=== PATIENT | female | born 1950 | race Caucasian/White ===

== ENCOUNTER → 2017-11-16 | Outpatient (CLI) | payer OTHER, BC ==
[~2017-11-16] MED LIST: METO-478 PO; OSEL75CA12 PO; PANT40TA PO; ROSU5TAB PO; VNTHFA/IN INH
== END | disposition home or self-care (01) ==
LOC: C.CPL 12:25
PROVIDERS: ATTEND Orthopaedic Surgery
DX: S83.242A Other tear of medial meniscus, current injury, left knee, initial encounter (principal); X58.XXXA Exposure to other specified factors, initial encounter

== ENCOUNTER 2017-11-25 10:40 | Emergency (ER) | payer OTHER, BC ==
[~2017-11-25] VITALS: Ht 160 cm; Wt 62.6 kg
[2017-11-25 10:42] VITALS: TEMP 37.8; Ht 160 cm; Wt 62.6 kg
[2017-11-25] MEDS ORDERED: ALBUT/IPRATROP 3MG/0.5MG NEB 3 ML VIAL INH STA (11:17)
[2017-11-25] MEDS ORDERED: ACETAMINOPHEN IV 100 ML IV ONE (11:30)
[2017-11-25] MEDS ORDERED: ROSU5TAB PO (11:32)
[2017-11-25] MEDS ORDERED: PANT40TA PO (11:32)
[2017-11-25] MEDS ORDERED: METO-478 PO (11:32)
[2017-11-25 11:48] LABS: BASO % 0.4 %; BASO ABS # 0.02 K/uL (0-0.2); HEMATOCRIT 36.6 % (37-47); HEMOGLOBIN 12.5 g/dL (12.0-16.0); IG# 0.01 K/uL (0.00-0.02); LYMPH % 9.6 %; LYMPH ABS # 0.47 K/uL (1.2-3.4); MEAN CELL VOLUME 92.9 fL (80-100); MEAN CORPUSCULAR HEMOGLOBIN 31.7 pg (25-34); MEAN CORPUSCULAR HGB CONC 34.2 g/dl (32-36); MEAN PLATELET VOLUME 12.2 fL (7.4-10.4); MONO % 8.8 %; MONO ABS # 0.43 K/uL (0.11-0.59); NEUT ABS # 3.96 K/uL (1.4-6.5); PLATELET COUNT 132 K/uL (130-400); RED CELL DISTRIBUTION WIDTH CV 14.3 % (11.5-14.5); RED CELL DISTRIBUTION WIDTH SD 49.2 fL (36.4-46.3); WHITE BLOOD COUNT 4.89 K/uL (4.8-10.8)
[2017-11-25 12:02] LABS: CALCIUM 8.4 mg/dl (8.5-10.1); CREATININE 0.83 mg/dl (0.60-1.20); POTASSIUM 3.5 mmol/L (3.5-5.1)
[2017-11-25 12:21] LABS: INFLUENZA B ANTIGEN Neg for Influ B (NEG)
--- NOTE | 2017-11-25 13:04 | DIAGNOSTIC IMAGING REPORT ---
CHEST 2 VIEWS ROUTINE HISTORY: 67 years-old Female EVALUATE RESPIRATORY DISTRESS.DYSPNEA acute respiratory distress with cough COMPARISON: None available TECHNIQUE: PA and lateral views of the chest FINDINGS: Cardiomediastinal and hilar silhouettes are within normal limits. No pneumothorax. There is mild blunting of the bilateral posterior costophrenic angles. No overt pulmonary edema. Ill-defined opacity of the lateral right lung base seen only on the frontal projection measures 2.8 x 1.9 cm without correlate seen on the lateral view. Bones of the chest appear grossly intact. There are degenerative changes of the shoulders and spine. IMPRESSION: 1. Ill-defined hazy opacity of the lateral right lung base may be attributed to composite density artifact or underlying airspace disease. Attention at follow-up recommended. 2. Mild blunting of the bilateral posterior costophrenic angles may be secondary to scarring/atelectasis or trace effusions. The above report was generated using voice recognition software. It may contain grammatical, syntax or spelling errors. Electronically signed by: Patricio Lamas M.D. 11/25/2017 1:03 PM Dictated Date/Time: 11/25/2017 1:00 PM
--- NOTE | 2017-11-25 13:13 | EMERGENCY ROOM VISIT NOTE ---
ED Visit Note First contact with patient: 11:00 The patient was seen and examined with Tiff. I agree with the history, physical and findings. Please see the note for disposition and details.
[2017-11-25] MEDS ORDERED: VNTHFA/IN INH (13:18)
[2017-11-25] MEDS ORDERED: OSEL75CA12 PO (13:18)
[2017-11-25 13:54] VITALS: BP 111/58; PULSE 98; O2SAT 97
--- NOTE | 2017-11-25 17:00 | EMERGENCY ROOM VISIT NOTE ---
ED Visit Note First contact with patient: 11:00 Chief Complaint: Flulike symptoms. History of Present Illness: Ms. Julien is a 67-year-old white female who ambulates into the ED complaining of sinus congestion, nasal drainage, cough and fevers. Patient reports her symptoms started 2 days ago after she had left knee surgery. Since that time her symptoms have been constant and slightly increasing in intensity. She reports her symptoms started with a cough and then she slowly developed sinus congestion/pressure, nasal drainage and yesterday she started developing fevers. She does report that she had her influenza vaccination this year. Currently she complains of a bifrontal headache discomfort with her congestion. She rates this discomfort 6/10. The pain is nonradiating. The pain is slightly worse with cough. She has not identified any alleviating factors related to the pain. She reports taking acetaminophen and Mucinex at 830 this morning without relief of her discomforts or symptoms. She denies skin eruptions, skin color changes, sweats, dizziness, lightheadedness, hearing changes, visual changes, difficulty speaking, difficulty swallowing, difficulty walking/coordinating body movements, sore throat, painful swallowing, drooling, voice changes, neck pain/stiffness, wheezing, shortness of breath, hemoptysis, chest pain, palpitations, previous clots, claudication, cramping, extended travel, abdominal pain, nausea, vomiting. Review of Systems: As noted above in history of present illness. All body systems were reviewed and found to be negative as noted above. Past Medical History: As previously noted, tachycardia, unspecified heart murmur , status post hysterectomy, bilateral knee surgery. Current Medications: Metoprolol XL, Crestor, Protonix. Allergies to Medications: Sulfa. Social History: Patient is not employed; she lives with her and feels safe in her home environment; she denies to tobacco and alcohol use Physical Examination: Vital Signs: Date Time Temp Pulse Resp B/P (MAP) Pulse Ox O2 Delivery O2 Flow Rate FiO2 11/25/17 13:54 98 20 111/58 97 Room Air 11/25/17 12:30 99 20 110/60 98 Room Air 11/25/17 12:18 108 20 127/62 Room Air 11/25/17 11:50 96 11/25/17 10:42 37.8 105 18 117/67 95 Room Air GENERAL: 67-year-old female in mild distress due to pain, nontoxic-appearing, afebrile and hemodynamically stable. NEUROLOGICAL: Awake, alert and oriented to person, place and time. Answering questions appropriately and following commands. Normal gait. Good hand eye coordination. No focal motor sensory deficits. SKIN: Warm, dry and pink. No soft tissue eruptions or trauma noted. HEENT: Atraumatic and normocephalic. No erythema or tenderness over the frontal or maxillary sinuses. External ears are nontender. Auditory canals are pink and patent. Tympanic membranes are not erythematous or edematous. PERRLA. Sclera white and conjunctiva pink without drainage. No drainage from naris with audible congestion. Oral cavity moist and pink. Uvula is midline and no abscesses are seen. Pharynx is nonerythematous or edematous. Speech normal and clear. No lymphadenopathy. Trachea midline. No jugular venous distention. BACK: No tenderness over the bony cervical, thoracic and lumbar spine. No nuchal rigidity or meningismus. Full range of motion of the cervical spine. No CVA tenderness. THORAX: Lungs sounds are clear to auscultation but decreased in the bases with prominence on the right. Equal bilaterally with symmetrical chest wall. No wheezing, rales or rhonchi. No crepitus, tenderness, subcutaneous air or deformities noted. HEART: Regular rate and rhythm. ABDOMEN: Flat, soft and nontender. Positive bowel sounds in all quadrants. No guarding, rigidity or organomegaly. EXTREMITIES: Moves all extremities well on command and with purpose. All distal neurovascular statuses are intact and equal bilaterally. No calf tenderness or cords. ED Course: Patient is assessed as noted above. Patient's medication list was reviewed. Laboratory Testing: Test 11/25/17 11:30 11/25/17 11:40 11/25/17 12:20 Range/Units White Blood Count 4.89 4.8-10.8 K/uL Red Blood Count 3.94 4.2-5.4 M/uL Hemoglobin 12.5 12.0-16.0 g/dL Hematocrit 36.6 37-47 % Mean Corpuscular Volume 92.9 80-100 fL Mean Corpuscular Hemoglobin 31.7 25-34 pg Mean Corpuscular Hemoglobin Concent 34.2 32-36 g/dl Platelet Count 132 130-400 K/uL Mean Platelet Volume 12.2 7.4-10.4 fL Neutrophils (%) (Auto) 81.0 % Lymphocytes (%) (Auto) 9.6 % Monocytes (%) (Auto) 8.8 % Eosinophils (%) (Auto) 0.0 % Basophils (%) (Auto) 0.4 % Neutrophils # (Auto) 3.96 1.4-6.5 K/uL Lymphocytes # (Auto) 0.47 1.2-3.4 K/uL Monocytes # (Auto) 0.43 0.11-0.59 K/uL Eosinophils # (Auto) 0.00 0-0.5 K/uL Basophils # (Auto) 0.02 0-0.2 K/uL RDW Standard Deviation 49.2 36.4-46.3 fL RDW Coefficient of Variation 14.3 11.5-14.5 % Immature Granulocyte % (Auto) 0.2 % Immature Granulocyte # (Auto) 0.01 0.00-0.02 K/uL Sodium Level 137 136-145 mmol/L Potassium Level 3.5 3.5-5.1 mmol/L Chloride Level 102 98-107 mmol/L Carbon Dioxide Level 29 21-32 mmol/L Anion Gap 6.0 3-11 mmol/L Blood Urea Nitrogen 15 7-18 mg/dl Creatinine 0.83 0.60-1.20 mg/dl Est Creatinine Clear Calc Drug Dose 55.9 ml/min Estimated GFR () 85.8 Estimated GFR (Non- 74.0 BUN/Creatinine Ratio 18.4 10-20 Random Glucose 108 70-99 mg/dl Calcium Level 8.4 8.5-10.1 mg/dl Influenza Type A Antigen POS for Influ A NEG Influenza Type B Antigen Neg for Influ B NEG Urine Color YELLOW Urine Appearance CLEAR CLEAR Urine pH 6.0 4.5-7.5 Urine Specific [place] 1.006 1.000-1.030 Urine Protein NEG NEG Urine Glucose (UA) NEG NEG Urine Ketones NEG NEG Urine Occult Blood NEG NEG Urine Nitrite NEG NEG Urine Bilirubin NEG NEG Urine Urobilinogen NEG NEG Urine Leukocyte Esterase NEG NEG Chest X-Rays: Were read by myself and the radiologist and shows an ill-defined hazy opacity of the lateral right lung base of questionable etiology, mild blunting of the bilateral posterior costophrenic angles of questionable etiology. Patient was given an albuterol/Atrovent nebulizer breathing treatment and 1 g of acetaminophen IV for pain. Patient was reassessed multiple times during her stay in the emergency department. Patient's case was reviewed with Dr. Drake; he independently assessed the patient we agreed on diagnostic approach, treatment, disposition and plan. Patient was educated about today's findings and instructed on her treatment plan ; she verbalized understanding and agreement with this plan. Clinical Impression: Influenza A. Cough and sinus congestion. Differential Diagnosis: Initially my differential diagnosis I considered pneumonia, bronchitis, influenza, simple common cold, pulmonary embolism, congestive heart failure and other causes. Disposition: Patient discharged home in stable condition accompanied by her ; prior to departure she was reassessed and subjectively reported she was feeling much better. I did reevaluate her lungs and are clear to auscultation with improved air movement in the bases. Plan: Patient was prescribed Tamiflu 75 mg 2 times a day for 5 days. Patient was prescribed an albuterol inhaler with spacer and encouraged to use 2 puffs every 6 hours for 5 days and is needed for severe coughing episode. Patient was supplied with an incentive spirometer and she was encouraged to use it 5 or 6 times a day while awake. Patient was encouraged to alternate ibuprofen and acetaminophen as needed for pain or fevers every 3 hours. Patient was encouraged to consider using [id number] decongestant and or cough suppressant. Patient is encouraged to follow-up with her primary care provider as soon as practical; she reports she is new to this area and her first visit with her new primary care provider is on December 05. Patient was encouraged to return the ED for worsening/uncontrolled symptoms, uncontrolled fevers, coughing up blood, wheezing, shortness of breath or any new /concerning symptoms.
== END 2017-11-25 14:10 | disposition home or self-care (01) ==
LOC: C.EDB 10:42
DX: J10.1 Influenza due to other identified influenza virus with other respiratory manifestations (principal); Z98.890 Other specified postprocedural states; Z90.710 Acquired absence of both cervix and uterus; Z79.899 Other long term (current) drug therapy

== ENCOUNTER 2021-06-26 05:14 | Observation (INO) ==
--- NOTE | 2021-05-27 12:05 | PAT Medication Instructions ---
Medication Instructions Date of Service May 27, 2021 Home Medications Lactobacillus 40-Bifidobact 3-S.thermophilus 100 billion cell capsule (Probiotic) 1 cap PO QAM azelastine 205.5 mcg (0.15 %) nasal spray 1 spray INTRANASAL BID PRN cholecalciferol (vitamin D3) 10 mcg (400 unit) tablet (Vitamin D3) 10 mcg PO QAM conjugated estrogens 0.625 mg/gram vaginal cream (Premarin) 0.625 mg VAGINAL WK diclofenac sodium 1 % topical gel 2 g TOPICAL QID PRN famotidine 20 mg tablet 20 mg PO QPM fluticasone propionate 50 mcg/actuation nasal spray,suspension 1 spray INTRANASAL BID ipratropium bromide 21 mcg (0.03 %) nasal spray 2 spray INTRANASAL BID PRN lysine 500 mg capsule 500 mg PO QAM methylcellulose (laxative) 500 mg tablet (Citrucel) 500 mg PO QAM metoprolol succinate 25 mg tablet,extended release 24 hr (Toprol XL) 12.5 mg PO QPM rosuvastatin 5 mg tablet (Crestor) 5 mg PO QAM valacyclovir 1 gram tablet (Valtrex) 1,000 mg PO BID PRN STOP taking 24 hours before surgery conjugated estrogens 0.625 mg/gram vaginal cream (Premarin) 0.625 mg VAGINAL WK diclofenac sodium 1 % topical gel 2 g TOPICAL QID PRN DO NOT take the morning of surgery Lactobacillus 40-Bifidobact 3-S.thermophilus 100 billion cell capsule (Probiotic) 1 cap PO QAM cholecalciferol (vitamin D3) 10 mcg (400 unit) tablet (Vitamin D3) 10 mcg PO QAM conjugated estrogens 0.625 mg/gram vaginal cream (Premarin) 0.625 mg VAGINAL WK lysine 500 mg capsule 500 mg PO QAM methylcellulose (laxative) 500 mg tablet (Citrucel) 500 mg PO QAM Take morning of surgery With a small sip of water, OTHERWISE NOTHING TO EAT OR DRINK AFTER MIDNIGHT: azelastine 205.5 mcg (0.15 %) nasal spray 1 spray INTRANASAL BID PRN (if needed) fluticasone propionate 50 mcg/actuation nasal spray,suspension 1 spray INTRANASAL BID ipratropium bromide 21 mcg (0.03 %) nasal spray 2 spray INTRANASAL BID PRN (if needed) rosuvastatin 5 mg tablet (Crestor) 5 mg PO QAM valacyclovir 1 gram tablet (Valtrex) 1,000 mg PO BID PRN(if needed) Take evening before surgery azelastine 205.5 mcg (0.15 %) nasal spray 1 spray INTRANASAL BID PRN (if needed) famotidine 20 mg tablet 20 mg PO QPM fluticasone propionate 50 mcg/actuation nasal spray,suspension 1 spray INTRANASAL BID ipratropium bromide 21 mcg (0.03 %) nasal spray 2 spray INTRANASAL BID PRN (if needed) metoprolol succinate 25 mg tablet,extended release 24 hr (Toprol XL) 12.5 mg PO QPM valacyclovir 1 gram tablet (Valtrex) 1,000 mg PO BID PRN (if needed) Other Notes If you have any questions please call us at [phone] or [phone] or [phone] or [phone]
--- NOTE | 2021-05-29 13:13 | Anesthesiology Consultation ---
Date of Service May 29, 2021 Assessment & Plan (1) Encounter for pre-operative examination: Chart Review Chart Review: Acceptable Risk for Surgery (pending surgeon ordered PCP clearance and preop Covid testing ) and Patient seen in Pre Admission Testing Pending surgeon ordered PCP clearance (had appointment- provider awaiting preop testing prior to final clearance- will fax results for review) Hx of spinal anesthesia - not effective with hysterectomy (1985) Per PAT appointment 05/29/2021, patient denies any recent travel in the past 2 weeks or large group activities. Wears PPE in public areas. No known Covid infection in the past 90 days. Patient is vaccinated for Covid. No known Covid positive contacts or Covid related symptoms. Preop Covid testing scheduled 06/24/21= will await results. Educated on importance of self quarantining, social distancing and wearing mask in public both for the patient after Covid testing done Teaching & Discussion Pre-Anesthesia Teaching/Discussion Notes: Instructed NPO after midnight before surgery,except medications with 15 cc of water. Medication instructions pro vided according to the [facility] guidelines. History Surgery Operation Date: 06/26/21 07:00 Proposed Procedures p Left Total Knee Arthroplasty - Pedro Cui MD Height/Weight Height: 5 ft 3 in Weight: 61.6 kg Allergies Allergy/AdvReac Type Severity Reaction Status Date / Time Sulfa (Sulfonamide AdvReac Intermediate RASH Unverified 05/19/21 08:09 Antibiotics) keflin Allergy Intermediate rash (IV Uncoded 05/19/21 08:09 drug) Medications Home Medications Medication Instructions Recorded Confirmed Last Taken Lactobacillus 40-Bifidobact 1 cap PO QAM 05/19/21 05/19/21 Unknown 3-S.thermophilus 100 billion cell capsule (Probiotic) azelastine 205.5 mcg (0.15 %) 1 spray INTRANASAL BID PRN 05/19/21 05/19/21 Unknown nasal spray cholecalciferol (vitamin D3) 10 10 mcg PO QAM 05/19/21 05/19/21 Unknown mcg (400 unit) tablet (Vitamin D3) conjugated estrogens 0.625 mg/gram 0.625 mg VAGINAL WK 05/19/21 05/19/21 Unknown vaginal cream (Premarin) diclofenac sodium 1 % topical gel 2 g TOPICAL QID PRN 05/19/21 05/19/21 Unknown famotidine 20 mg tablet 20 mg PO QPM 05/19/21 05/19/21 Unknown fluticasone propionate 50 1 spray INTRANASAL BID 05/19/21 05/19/21 Unknown mcg/actuation nasal spray,suspension ipratropium bromide 21 mcg (0.03 2 spray INTRANASAL BID PRN 05/19/21 05/19/21 Unknown %) nasal spray lysine 500 mg capsule 500 mg PO QAM 05/19/21 05/19/21 Unknown methylcellulose (laxative) 500 mg 500 mg PO QAM 05/19/21 05/19/21 Unknown tablet (Citrucel) metoprolol succinate 25 mg 12.5 mg PO QPM 05/19/21 05/19/21 Unknown tablet,extended release 24 hr (Toprol XL) rosuvastatin 5 mg tablet (Crestor) 5 mg PO QAM 05/19/21 05/19/21 Unknown valacyclovir 1 gram tablet 1,000 mg PO BID PRN 05/19/21 05/19/21 Unknown (Valtrex) Past Medical History Medical History Chronic back pain Degenerative disc disease GERD (gastroesophageal reflux disease) Well controlled and stable with med Hiatal hernia Sleeps on wedge at home Hyperlipidemia Migraine hx Non-allergic rhinitis Chronic sinus issues -- following with ENT [facility] Osteoarthritis Tachycardia Well controlled with Metoprolol Venous insufficiency To right LE- s/p ablation 2020 Wears compression stocking to right LE Exercise / Class Metabolic Activity II 4-5 Yardwork/Stairs/Walk up hill (one flight of stairs - no chest pain or SOB ) Past Family History Family History Other No family history of adverse response to anesthesia Past Surgical History Surgical History H/O exploratory laparotomy H/O vaginal hysterectomy History of cataract surgery bilateral History of colonoscopy History of esophagogastroduodenoscopy (EGD) History of tonsillectomy S/P left knee arthroscopy S/P right knee arthroscopy Status post endovenous radiofrequency ablation (RFA) of saphenous vein right leg (permenant right ankle swelling) Past Anesthesia History No Hx of Anesthesia Complications (no anesthesia issues; does get easily dehdyrated (at times needs more IV fluids)) and No Family Hx of Anesthesia Complications History of PONV No Hx of PONV and Hx of Motion Sickness Social History Smoking Status: Never smoker Do You Dip or Chew Tobacco: No Hx Alcohol Use: No Hx Substance Use: No substance use type: does not use Review of Systems Hx of blood transfusion in - s/p hysterectomy Patient denies chest pain, shortness of breath, dyspnea on exertion, cough, wheezing, palpitations. No hx of seizures, stroke, AK, apnea/snoring. No hx of blood clots. Physical Exam Vital Signs VITALS BP 107/71 P 72 TEMP 98.3 SP02 97% RESP 16 Constitutional no acute distress ENMT Mouth: no TMJ clicking Thyromental Distance: > or= 3.5 Finger Breadths (3.5) Mallampati Class: II Permanent upper back implant Crowns to molars Neck neck extension not limited Respiratory normal respiratory effort; no respiratory distress Auscultation: lungs clear to auscultation bilaterally; no wheezes Cardiovascular Rate/Rhythm: regular rate and regular rhythm Heart Sounds: no murmur Vessels: no carotid bruit Musculoskeletal Spine: no pain with cervical ROM Extremities: extremities normal to inspection Psychiatric Orientation: alert Lab Results Anesthesia Preop Results Results Anesthesia Widget: WBC 8.05 K/uL (4.8-10.8) 05/29/21 Hgb 12.3 g/dL (12.0-16.0) 05/29/21 Hct 37.3 % (37-47) 05/29/21 Plt 223 K/uL (130-400) 05/29/21 Na 140 mmol/L (136-145) 05/29/21 K 4.1 mmol/L (3.5-5.1) 05/29/21 Cl 107 mmol/L (98-107) 05/29/21 CO2 28 mmol/L (21-32) 05/29/21 BUN 18 mg/dl (7-18) 05/29/21 Creat 0.70 mg/dl (0.6-1.2) 05/29/21 Glucose Level 106 mg/dl (70-99) H 05/29/21 PT 10.6 Seconds (9.0-12.0) 05/29/21 PTT 27.1 Seconds (21.0-31.0) 05/29/21 INR 1.0 (0.9-1.1) 05/29/21 HA1c 6.1 % (4.5-5.6) H 05/29/21 Urine Color Yellow 05/29/21 Urine Appearance Clear (Clear) 05/29/21 Urine pH 5.5 (4.5-7.5) 05/29/21 Urine Specific [place] 1.014 (1.000-1.030) 05/29/21 Urine Protein Negative (Negative) 05/29/21 Urine Glucose (UA) Negative (Negative) 05/29/21 Urine Ketones Negative (Negative) 05/29/21 Urine Blood Negative (Negative) 05/29/21 Urine Nitrite Negative (Negative) 05/29/21 Urine Bilirubin Negative (Negative) 05/29/21 Urine Urobilinogen Negative (Negative) 05/29/21 Urine Leukocyte Esterase Negative (Negative) 05/29/21 Blood Type O Negative 05/29/21 Antibody Screen NEGATIVE 05/29/21 Testing Electrocardiogram Date: 05/29/21 Findings: + NSR @ (64bpm) and + no change from (June 04, 2020 per cardio ) Low voltage QRS. Chest X-Ray Date: 05/29/21 Findings: + NAD
--- NOTE | 2021-06-24 10:54 | History & Physical Report ---
Date of Service June 24, 2021 Assessment & Plan (1) Primary osteoarthritis of left knee: Plan: Treatment options discussed with patient. She has failed conservative measures. She would like to proceed with replacement. Risks, benefits and alternatives to surgery including but not limited to infection, DVT, pain, stiffness, need for revision surgery, damage to blood vessels, damage to nerves, PE, , were discussed with the patient and they wish to proceed. Plan on left total knee arthroplasty at [facility] on 06/26/21. Will plan on outpatient PT post op as well as ASA 81mg BID x 1 mo post op for DVT prophylaxis. All questions answered. She will follow up post op. History of Present Illness Chief Complaint: Left knee pain Primary Care Provider: Pacheco Nguyen MD 71 year old female with PMHx significant for high cholesterol, GERD, tachycardia, and venous insufficiency presents with longstanding left knee pain. Pain interfering with her daily and leisure activities. She has failed conservative measures including cortison and ARANDA injections, NSAIDs, therapy. She would like to proceed with surgical intervention. Patient denies headaches, sweats, fevers, chills, double vision, blurred vision, cough, sore throat, dysphagia, chest pain, sob, wheezing, n/v/d/c, numbness, tingling, fatigue, urinary symptoms, mood disorders. ROS positive for left knee pain and stiffness. Allergies Allergy/AdvReac Type Severity Reaction Status Date / Time Sulfa (Sulfonamide AdvReac Intermediate RASH Unverified 05/19/21 08:09 Antibiotics) keflin Allergy Intermediate rash (IV Uncoded 05/19/21 08:09 drug) Home Medications Medication Instructions Recorded Confirmed Type Lactobacillus 40-Bifidobact 1 cap PO QAM 05/19/21 05/19/21 History 3-S.thermophilus 100 billion cell capsule (Probiotic) azelastine 205.5 mcg (0.15 %) 1 spray INTRANASAL BID PRN 05/19/21 05/19/21 History nasal spray cholecalciferol (vitamin D3) 10 10 mcg PO QAM 05/19/21 05/19/21 History mcg (400 unit) tablet (Vitamin D3) conjugated estrogens 0.625 mg/gram 0.625 mg VAGINAL WK 05/19/21 05/19/21 History vaginal cream (Premarin) diclofenac sodium 1 % topical gel 2 g TOPICAL QID PRN 05/19/21 05/19/21 History famotidine 20 mg tablet 20 mg PO QPM 05/19/21 05/19/21 History fluticasone propionate 50 1 spray INTRANASAL BID 05/19/21 05/19/21 History mcg/actuation nasal spray,suspension ipratropium bromide 21 mcg (0.03 2 spray INTRANASAL BID PRN 05/19/21 05/19/21 History %) nasal spray lysine 500 mg capsule 500 mg PO QAM 05/19/21 05/19/21 History methylcellulose (laxative) 500 mg 500 mg PO QAM 05/19/21 05/19/21 History tablet (Citrucel) metoprolol succinate 25 mg 12.5 mg PO QPM 05/19/21 05/19/21 History tablet,extended release 24 hr (Toprol XL) rosuvastatin 5 mg tablet (Crestor) 5 mg PO QAM 05/19/21 05/19/21 History valacyclovir 1 gram tablet 1,000 mg PO BID PRN 05/19/21 05/19/21 History (Valtrex) Past Med/Surg History Medical History Chronic back pain Degenerative disc disease GERD (gastroesophageal reflux disease) Well controlled and stable with med Hiatal hernia Sleeps on wedge at home Hyperlipidemia Migraine hx Non-allergic rhinitis Chronic sinus issues -- following with ENT [facility] Osteoarthritis Tachycardia Well controlled with Metoprolol Venous insufficiency To right LE- s/p ablation 2020 Wears compression stocking to right LE Surgical History H/O exploratory laparotomy H/O vaginal hysterectomy History of cataract surgery bilateral History of colonoscopy History of esophagogastroduodenoscopy (EGD) History of tonsillectomy S/P left knee arthroscopy S/P right knee arthroscopy Status post endovenous radiofrequency ablation (RFA) of saphenous vein right leg (permenant right ankle swelling) Family History Other No family history of adverse response to anesthesia Social History Smoking Status: Never smoker Second Hand Exposure: No; Hx Alcohol Use: No Hx Substance Use: No Preferred Language: Urdu Communication Ability: Effective County Surveyor Required: No Beliefs That Will Affect Care: None Current Living Situation: Spouse Feels Safe at Home: Yes Assistive Devices: Glasses Review of Systems All systems reviewed & are unremarkable except as noted in HPI & below Physical Exam Constitutional: well developed and well nourished; no acute distress Eyes: PERRL, conjunctivae normal, anicteric sclerae ENMT: external ear and nose normal, oropharynx normal Neck: trachea midline, no thyromegaly Respiratory: normal respiratory effort, lungs clear to auscultation Cardiovascular: RRR, no murmur, no edema Musculoskeletal: Left knee: Valgus alignment. Moderate crepitation. Mild effusion. Tenderness lateral joint line. Positive Tea's. Stable to valgus and varus stress. Skin: no rashes, warm and dry Neurologic: patellar DTR's 2+ bilat, sensation intact Psychiatric: A+Ox3, euthymic affect Results & Data ([facility]) Diagnostic Findings Left knee radiographs: Multiple views of the left knee demonstrate severe left knee DJD with complete loss of the lateral joint space, sclerosis and osteophyte formation are present.
[2021-06-26] MEDS ORDERED: dexAMETHasone 4 MG TAB PO SCH (06:00)
[2021-06-26] MEDS ORDERED: VANCOMYCIN HCL 1,000 MG/270 ML BAG IV SCH (06:00)
[2021-06-26] MEDS ORDERED: TRANEXAMIC ACID 1,000 MG **IV Pre-op IV SCH (06:00)
[2021-06-26] MEDS ORDERED: METOCLOPRAMIDE HCL 10 MG TABLET PO SCH (06:00)
[2021-06-26] MEDS ORDERED: FAMOTIDINE 20 MG TAB PO SCH (06:00)
[2021-06-26] MEDS ORDERED: TRANEXAMIC ACID 1,000 MG **IV Intra-op IV SCH (06:00)
[2021-06-26] MEDS ORDERED: LR 500ML BOLUS, THEN 15ML/HR IV SCH (06:00)
[2021-06-26] MEDS ORDERED: GABAPENTIN 300 MG CAP PO SCH (06:00)
[2021-06-26] MEDS ORDERED: ROPIVACAINE 0.5% HCL/PF 150 MG, BUPIVACAINE 0.75% MPF 20 ML, EPINEPHrine 30MG/30ML (OR ... INFIL SCH (06:00)
[2021-06-26] MEDS ORDERED: ACETAMINOPHEN 500 MG TAB PO SCH (06:00)
[2021-06-26] MEDS ORDERED: BUPIVACAINE 0.5 % 5 MG/1 ML PF 10ML VIAL ONE (06:24)
[2021-06-26] MEDS ORDERED: ROPIVACAINE 0.5% 5 MG/ML 30 ML VIAL ONE (06:24)
[2021-06-26] MEDS ORDERED: EPINEPHrine INJ 1 MG/ML AMP ONE (06:25)
[2021-06-26] MEDS ORDERED: ORTHO JOINT ANESTHETIC ONE (06:38)
[2021-06-26] MEDS ORDERED: ePHEDrine sulfate 50 MG/ML SYR ONE (06:41)
[2021-06-26] MEDS ORDERED: LIDOCAINE 2% 2 ML VIAL/AMP(20MG/ML) INFIL ONE (06:41)
[2021-06-26] MEDS ORDERED: PROPOFOL IV EMULSION 10 MG/ML 20 ML VIAL IV ONE (06:41)
[2021-06-26] MEDS ORDERED: fentaNYL citrate 100 MCG/2 ML VIAL ONE (06:42)
[2021-06-26] MEDS ORDERED: MIDAZOLAM HCL 1 MG/ML 2ML VIAL ONE (06:42)
--- NOTE | 2021-06-26 07:15 | History & Physical Bridge Note ---
Date of Service June 26, 2021 History & Physical Bridge Note I have examined the patient, reviewed the History & Physical and in the interval since the performance of the History & Physical I have noted the following changes of clinical significance: no changes noted
[2021-06-26] MEDS ORDERED: ATROPINE SULFATE 0.1 MG/ML 10ML SYR IV PRN (07:28)
[2021-06-26] MEDS ORDERED: ePHEDrine sulfate 50 MG/ML AMP IV PRN (07:28)
--- NOTE | 2021-06-26 09:47 | Operative Report ---
Post Operative Report Pre & Post Diagnosis Operation Date: 06/26/21 07:00 Pre-Op Diagnosis: Unilateral Primary Osteoarthritis, Left Knee Post-Op Diagnosis: Unilateral Primary Osteoarthritis, Left Knee I identified the patient and participated in the time-out.: Yes Procedure Operation Date: 06/26/21 07:00 Actual Procedures p Left Total Knee Arthroplasty(Left), lateral release, superficial wound VAC application- Pedro Cui MD Surgeon Pedro Cui MD Vendor Management Consultant Russ GARZA Estimated Blood Loss 5 Findings Consistent with Post-Op Diagnosis Specimens Bone cuts Drains 2 Hemovac Anesthesia Type MAC Spinal Regional Complications none Disposition Disposition: Recovery Room Indications 71-year female with chronic progressive osteoarthritis left knee. History of bilateral knee arthroscopies in the past. Radiographs demonstrate that she has a valgus knee [id number] lateral compartment moderate patellofemoral osteoarthritis. Description of Procedure Patient was taken to the operating room placed supine on the operating table and anesthetized under spinal MAC regional block anesthesia. Exam under anesthesia demonstrated 0 through 130 degrees range of motion valgus knee no pseudolaxity. A pneumatic tourniquet was placed about the thigh of the left lower extremity. The left lower extremity was prepped and draped in usual fashion. The leg was elevated exsanguinated with an Esmarch bandage and the pneumatic was raised to 300 mm mercury. An anterior incision was made across the left knee. The skin was incised longitudinally subcutaneous flaps were elevated and an incision was made through the medial retinaculum extending up into the mid third of the quadriceps tendon and extended down to the medial tibial tubercle. Intra- articular findings demonstrated [id number]-[id number] lateral compartment partial lateral meniscectomy and lateral meniscus tear odd facet medial patella grade 4 exposed bone. The knee was exposed by excising the infrapatellar fat pad, excising the meniscal remnants and anterior cruciate ligament. Any inflamed synovial tissue was resected. The fat pad over the anterior femur was resected for placement of the component in that area. The lateral synovial bands were release. The femur was exposed. The custom femoral cutting block was pinned in position. The distal femoral cutting block was applied. The distal femoral cut was made with the oscillating saw. The size 8, 4-in-1 cutting block was placed. The anterior and posterior chamfer cuts were made. The knee was extended and a subperiosteal peel lateral release was performed around the patella. The patella width was measured and width was reproduced using freehand cut technique. The 32 millimeter symmetrical patella was used. 3 drill holes are made for the pegs. The tibia was exposed. A custom tibial cutting block was positioned however when I placed a drop agustina it did not appear to have the desired alignment so I used an external tibial cutting guide to make a perpendicular cut along exit the tibia matched the posterior slope. Cutting guide was placed and the proximal cut was made with the oscillating saw. All osteophytes were resected. The lamina tester armature or fields was used to assess ligamentous balance and the ligaments were balanced in extension and flexion. The tibia was reexposed and measured for a size D tibial component. This was externally rotated in line with the tibial tubercle and the fixation pins were drilled. The proximal tibia was fashioned with the drill and punch. The size 8 CR fe moral trial was inserted. The trial MC inserts were used. With a 10 component there was still slight flexion contracture and there was still some tightness in flexion so I had to revise the tibial cut removing about 2 mm more of the proximal tibia we used the punch again and then the 10 mm insert gave balanced ligaments through full range of motion. The patella tracked with some lateral tilt so had to do a lateral release which was performed extra-articular leaving the synovium intact. The patella tracks centrally afterwards. The trials were removed. The orthomix anesthetic cocktail was injected per protocol. The knee was then copiously irrigated with pulsatile lavage saline solution. The final components were cemented with Simplex cement. The final components were [employer] persona size 8 narrow CR left femoral component, D left tibial component, 10 mm MC polyethylene, 32 symmetrical patella. After the cement cured with the knee in full extension the Betadine soak was used per protocol. The knee joint was copiously irrigated with antibiotic solution with bacitracin. 2 drains were brought out laterally and connected to a Hemovac. The quadriceps tendon and medial retinaculum were closed with interrupted [id number] #1 Vicryl sutures. The knee was taken through a full range of motion and repair was secure. The subcutaneous tissues were closed with 2-0 Vicryl sutures and skin was closed with juana. Giovanni and Acticoat superficial wound VAC was applied and the patient tolerated the procedure well. Russ GARZA my physician criminal legal assistant, assisted in soft tissue retraction instrument management leg positioning the closure and will participate in the postoperative care of the patient. I attest to the content of the Intraoperative Record and any orders documented therein. Any exceptions are noted below.
--- NOTE | 2021-06-26 10:31 | XRay Report ---
TWO VIEWS LEFT KNEE CLINICAL HISTORY: Postoperative examination. FINDINGS: AP and crosstable lateral portable views of the left knee are obtained. A left knee arthrop lasty is in near anatomic alignment. There has been undersurface remodeling of the patella. No acute fracture is seen. There are expected postoperative changes around the knee including skin clips, a dumont rgical drain, soft tissue edema, and subcutaneous gas. IMPRESSION: Expected postoperative changes status post left knee arthroplasty. No acute fracture is s een. ACT 112: Negative or not required by law. Electronically signed by: Sergey Chavez M.D. 06/26/2021 10:30 AM
[2021-06-26] MEDS ORDERED: ONDANSETRON INJ 2 MG/ML 2 ML VIAL IV PRN (10:42)
[2021-06-26] MEDS ORDERED: MAGNESIUM HYDROXIDE SUSP 30 ML UDC PO PRN (10:42)
[2021-06-26] MEDS ORDERED: METOCLOPRAMIDE HCL INJ 5 MG/ML 2 ML VIAL IV PRN (10:42)
[2021-06-26] MEDS ORDERED: HYDROmorphone INJ 0.5 MG/0.5 ML SYR IV PRN (10:42)
[2021-06-26] MEDS ORDERED: bisacodyL 10 MG SUPP PR PRN (10:42)
[2021-06-26] MEDS ORDERED: VANCOMYCIN CONSULT ACTIVE PRN (10:42)
[2021-06-26] MEDS ORDERED: NALOXONE HCL 0.4 MG/1 ML VIAL/CARP IV PRN (10:42)
--- NOTE | 2021-06-26 10:44 | Anesthesiology Progress Note ---
Date of Service June 26, 2021 Anesthesia Post Procedure Vital Signs Vital Signs: Temp Pulse Pulse Resp BP BP Pulse Ox 06/26/21 10:15 36.4 C L 65 15 106/55 L 94 06/26/21 10:05 68 16 106/59 L 95 06/26/21 09:55 65 16 103/56 L 100 06/26/21 09:45 68 19 102/54 L 100 06/26/21 09:39 36.8 C 66 14 107/56 L 98 06/26/21 05:52 36.9 C 64 18 125/70 98 Transfer of Care Handoff Completed per policy Notes Mental Status: alert / awake / arousable Patient Amnestic to Procedure: Yes Nausea / Vomiting: adequately controlled Pain: adequately controlled Airway Patency, RR, SpO2: stable & adequate BP & HR: stable & adequate Hydration State: stable & adequate Neuraxial Anesthesia: was administered and sensory block is resolving Anesthetic Complications: no major complications apparent
--- NOTE | 2021-06-26 11:13 | Hospitalist Consultation ---
Date of Consultation June 26, 2021 Assessment & Plan (1) Status post total left knee replacement: This is a 71yo F with a PMH of HLD, history of tachycardia, GERD, venous insufficiency and other medical problems listed below who is POD #0 s/p L TKA by Dr. Cui. Per ortho for pain control, wound care, anticoagulation and activities Monitor H&H (pre-op hgb 12.3, EBL 5ml) Continue incentive spirometry, PT/OT when appropriate (2) Tachycardia: History of remote tachycardia, underwent workup in the past with negative stress test, echo from 2018 with grade 1 diastolic dysfunction, otherwise wnl HR currently 71 bpm Continue low dose Toprol HS (3) Hyperlipidemia: Continue statin (4) Venous insufficiency: H/o vein ablation in 2019 at [facility] (5) Non-allergic rhinitis: Continue Flonase, Atrovent. Azelastine not being on formulary - patient okay to trial saline spray instead and instructed family can bring in Astelin if needed (6) GERD (gastroesophageal reflux disease): Continue Pepcid PCP: Wendy Dispo: Per primary service Patient seen in collaboration with Dr. Alvarado. Please see addendum. Thank you for this consultation. We will follow the patient with you during their hospital stay. You can reach a member of the [facility] Hospitalist Team 10/05 via [place] Text role. Supervising Physician Co-Signing Physician Notes Patient is a 71-year-old female with history of venous insufficiency, nonallergic rhinitis, tachycardia and other medical problems was consulted for postop medical management after having left total knee arthroplasty by Dr. Cui. Patient is doing well postoperatively. She denies any significant pain at surgical site. Also denies chest pain, dyspnea, dizziness, nausea, abdominal pain. On exam patient is moderately built and nourished, no apparent distress, normocephalic atraumatic, lungs are clear to auscultation, normal breath sounds, S1-S2,+ murmur, no pedal edema, abdomen soft, nontender, normal bowel sounds, alert, awake, oriented, grossly no focal deficits, left knee surgical site in dressing,+ wound VAC. Patient is consulted for postop medical management. Monitor for postop anemia. Continue incentive spirometry. Bowel regimen to prevent constipation. PT OT when appropriate. Continue wound care, DVT prophylaxis as per primary team. Continue home dose of metoprolol, statin, inhalers. I personally reviewed the record. Patient is interviewed and examined at bedside. Patient's care is coordinated with Faby Brown PA-C. Please refer to the documentation above for details of patient's presentation and for discussion of other issues. History of Present Illness Reason for Consultation: post op med mgmt Requesting Physician: Dr. Beach Attending Physician: Pedro Cui MD History of Present Illness This is a 71yo F with a PMH of HLD, history of tachycardia, GERD, venous insufficiency and other medical problems listed below who is POD #0 s/p L TKA by Dr. Cui. Patient is feeling well postoperatively. Denies any pain or paresthesias of distal left lower extremity. Tolerating diet without issue. Denies any fever, chills, lightheadedness, chest pain, palpitations, shortness of breath, nausea, vomiting, abdominal pain, dysuria, diarrhea or constipation. Last bowel movement yesterday evening. Follows with Dr. Nguyen for primary care. Allergies Allergy/AdvReac Type Severity Reaction Status Date / Time Sulfa (Sulfonamide AdvReac Intermediate RASH Unverified 06/26/21 05:39 Antibiotics) keflin Allergy Intermediate rash (IV Uncoded 06/26/21 05:39 drug) Home Medications Medication Instructions Recorded Confirmed Type Lactobacillus 40-Bifidobact 1 cap PO QAM 05/19/21 06/26/21 History 3-S.thermophilus 100 billion cell capsule (Probiotic) azelastine 205.5 mcg (0.15 %) 1 spray INTRANASAL BID PRN 05/19/21 06/26/21 History nasal spray cholecalciferol (vitamin D3) 10 10 mcg PO QAM 05/19/21 06/26/21 History mcg (400 unit) tablet (Vitamin D3) conjugated estrogens 0.625 mg/gram 0.625 mg VAGINAL WK 05/19/21 06/26/21 History vaginal cream (Premarin) diclofenac sodium 1 % topical gel 2 g TOPICAL QID PRN 05/19/21 06/26/21 History famotidine 20 mg tablet 20 mg PO QPM 05/19/21 06/26/21 History fluticasone propionate 50 1 spray INTRANASAL BID 05/19/21 06/26/21 History mcg/actuation nasal spray,suspension ipratropium bromide 21 mcg (0.03 2 spray INTRANASAL BID PRN 05/19/21 06/26/21 History %) nasal spray lysine 500 mg capsule 500 mg PO QAM 05/19/21 06/26/21 History methylcellulose (laxative) 500 mg 500 mg PO QAM 05/19/21 06/26/21 History tablet (Citrucel) metoprolol succinate 25 mg 12.5 mg PO QPM 05/19/21 06/26/21 History tablet,extended release 24 hr (Toprol XL) rosuvastatin 5 mg tablet (Crestor) 5 mg PO QAM 05/19/21 06/26/21 History valacyclovir 1 gram tablet 1,000 mg PO BID PRN 05/19/21 06/26/21 History (Valtrex) Patient History Medical History (Updated 06/26/21 @ 13:23 by Faby Brown PA-C) Chronic back pain Degenerative disc disease GERD (gastroesophageal reflux disease) Well controlled and stable with med Hiatal hernia Sleeps on wedge at home Hyperlipidemia Migraine hx Non-allergic rhinitis Chronic sinus issues -- following with ENT [facility] Osteoarthritis Tachycardia Well controlled with Metoprolol Venous insufficiency To right LE- s/p ablation 2020 Wears compression stocking to right LE Surgical History (Updated 06/26/21 @ 13:23 by Faby Brown PA-C) H/O exploratory laparotomy H/O vaginal hysterectomy History of cataract surgery bilateral History of colonoscopy History of esophagogastroduodenoscopy (EGD) History of tonsillectomy S/P left knee arthroscopy S/P right knee arthroscopy Status post endovenous radiofrequency ablation (RFA) of saphenous vein right leg (permenant right ankle swelling) Status post total left knee replacement Family History (Updated 06/26/21 @ 13:20 by Faby Brown PA-C) Other Asthma Colorectal cancer Diabetes No family history of adverse response to anesthesia Social History Smoking Status: Never smoker Second Hand Exposure: No; Do You Dip or Chew Tobacco: No; Tobacco Cessation Education Requested by Patient: No Hx Alcohol Use: No Hx Substance Use: No Preferred Language: Malagasy Communication Ability: Effective Preliminary School Psychologist Required: No Beliefs That Will Affect Care: None Current Living Situation: Spouse Other Information That Helps Us Care for You: No Feels Safe at Home: Yes Safety Concerns: Feels Safe At This Time Assistive Devices: Walker Review of Systems Review of Systems: At least ten systems reviewed and negative except as noted in the HPI. Physical Exam Physical Exam: General Appearance: WD/WN, vitals as above, NAD, pleasant, conversing easily Head: normocephalic, atraumatic Eyes: normal inspection, PERRL, conjunctivae normal, anicteric sclerae ENT: external ear and nose normal, oropharynx normal Neck: normal visual inspection, trachea midline, no thyromegaly Respiratory: normal respiratory effort, lungs clear to auscultation, no wheeze, rales, rhonchi. No accessory muscle use Cardiovascular: regular rate, rhythm, + systolic murmur, normal peripheral pulses, no BLE edema. Vessels: no JVD Abdomen/GI: normal bowel sounds, soft, nontender, no hepatosplenomegaly Extremities/Musculoskeletal: L knee with surgical dressing in place, no cyanosis or clubbing, extremities motor strength 5/5 Neurologic: PERRL, CN's II-XI intact bilaterally and moves all extremities Psychiatric: A+Ox3, euthymic affect Skin: no rashes, normal color, warm/dry Results & Data Results & Data ([facility]) Vital Signs (Past 12 Hours) Vital Signs Temp Pulse Pulse Resp BP BP Pulse Ox 06/26/21 10:57 36.5 C 67 16 102/62 97 06/26/21 10:30 36.4 C L 65 16 104/64 97 06/26/21 10:15 36.4 C L 65 15 106/55 L 94 06/26/21 10:05 68 16 106/59 L 95 06/26/21 09:55 65 16 103/56 L 100 06/26/21 09:45 68 19 102/54 L 100 06/26/21 09:39 36.8 C 66 14 107/56 L 98 06/26/21 05:52 36.9 C 64 18 125/70 98 Diagnostic Findings Knee X-Ray 06/26/21 09:44 TWO VIEWS LEFT KNEE CLINICAL HISTORY: Postoperative examination. FINDINGS: AP and crosstable lateral portable views of the left knee are obtained. A left knee arthroplasty is in near anatomic alignment. There has been undersurface remodeling of the patella. No acute fracture is seen. There are expected postoperative changes around the knee including skin clips, a surgical drain, soft tissue edema, and subcutaneous gas. IMPRESSION: Expected postoperative changes status post left knee arthroplasty. No acute fracture is seen. ACT 112: Negative or not required by law. Electronically signed by: Sergey Chavez M.D. 06/26/2021 10:30 AM
[2021-06-26] MEDS: SODIUM CHLORIDE 0.9% 1000ML 1,000 ML IV SCH ×2 (11:42→20:46)
[2021-06-26] MEDS ORDERED: IPRATROPIUM BROMIDE NASAL SPRAY 0.06% 15ML NAE PRN (11:45)
[2021-06-26] MEDS: ACETAMINOPHEN 500 MG TAB PO SCH ×2 (13:19→20:58)
[2021-06-26] MEDS ORDERED: SODIUM CHLORIDE 0.65% NA SOLN 45 ML (OCEAN) PRN (13:35)
[2021-06-26] MEDS ORDERED: POLYETHYLENE (MIRALAX) 17 GM PACK PO PRN (14:26)
[2021-06-26] MEDS ORDERED: VANCOMYCIN HCL 1,000 MG in SODIUM CHLORIDE 0.9% 250 ML IV SCH (18:00)
[2021-06-26] MEDS: FLUTICASONE PROPIONATE NA SPR 16 GM BTL SCH (20:54)
[2021-06-26] MEDS: METOPROLOL SUCC 25MG EXT REL TAB PO SCH (20:55)
[2021-06-26] MEDS: DOCUSATE SODIUM 100 MG CAP PO SCH (20:55)
[2021-06-26] MEDS: SENNA 8.6 MG TAB PO SCH (20:56)
[2021-06-26] MEDS: FAMOTIDINE 20 MG TAB PO SCH (20:57)
[2021-06-26] MEDS: CeleBREX 200 MG CAP PO SCH (20:57)
[2021-06-26] MEDS: ASPIRIN 81 MG ECTAB PO SCH (20:58)
[2021-06-27] MEDS: ACETAMINOPHEN 500 MG TAB PO SCH ×3 (06:13→21:44)
--- NOTE | 2021-06-27 07:27 | Orthopedic Progress Note ---
Date of Service June 27, 2021 Assessment & Plan (1) Status post total left knee replacement: Plan: POD#1 Left TKA -PT/OT -Pain management as written -AM labs-pending -DVT prophylaxis-SCDs, TEDs, ASA 81mg BID -D/C planning-home with OPPT. Will recheck later today for hemovac output and reassess after therapy discharge today vs tomorrow. Admission and Anticipated Discharge Date Admission Date: June 26, 2021 Subjective Patient resting in bed comfortably. She has no pain this morning. Had some foot drop yesterday slow to resolve, starting to get some motion back however. No other complaints, denies chest pain, sob, dizziness, headache, fever, chills. Review of Systems Review of Systems: All systems reviewed & are unremarkable except as noted in Subjective Physical Exam Physical Exam: Dressing to left knee is c/d/i. No calf tenderness. Toes mobile, sensation intact, dorsalis pedal pulse palpable. Decreased active dorsiflexion with weakness with dorsiflexion Constitutional: well developed and well nourished; no acute distress Results & Data ([facility]) Vital Signs (Past 12 Hours) Vital Signs Temp Pulse Pulse Resp BP Pulse Ox 06/27/21 07:20 36.8 C 60 16 107/70 99 06/27/21 02:46 36.8 C 63 16 99/61 L 95 06/26/21 21:50 36.6 C 64 16 97/56 L 97 06/26/21 20:47 61 106/61
[2021-06-27] MEDS: ADVANCED PROBIOTIC 1250 MG CAPSULE PO SCH (08:10)
[2021-06-27] MEDS: CALCIUM POLYCARBOPHIL 625MG TAB PO SCH (08:10)
[2021-06-27] MEDS: FLUTICASONE PROPIONATE NA SPR 16 GM BTL SCH ×2 (08:10→19:56)
[2021-06-27] MEDS: ROSUVASTATIN CALCIUM 5 MG TAB PO SCH (08:10)
[2021-06-27] MEDS: DOCUSATE SODIUM 100 MG CAP PO SCH ×2 (08:11→19:59)
[2021-06-27] MEDS: CeleBREX 200 MG CAP PO SCH ×2 (08:11→19:59)
[2021-06-27] MEDS: CHOLECALCIFEROL 400 UNITS 10 MCG TAB PO SCH (08:11)
[2021-06-27] MEDS: ASPIRIN 81 MG ECTAB PO SCH ×2 (08:12→20:00)
[2021-06-27] MEDS: MULTIVITAMIN TAB PO SCH (08:13)
[2021-06-27] MEDS ORDERED: LYSINE 500 MG PO SCH (09:00)
[2021-06-27 09:12] LABS: Hematocrit (blood only) 31.8 % (37-47); Hemoglobin 10.3 g/dL (12.0-16.0); Mean Corpuscular Hemoglobin 30.7 pg (25-34); Mean Corpuscular Hgb Conc 32.4 g/dL (32-36); Mean Corpuscular Volume 94.6 fL (80-100); Mean Platelet Volume 11.1 fL (7.4-10.4); Platelet Count 209 K/uL (130-400); RDW Coefficient of Variation 14.5 % (11.5-14.5); RDW Standard Deviation 49.6 fL (36.4-46.3); Red Blood Count 3.36 M/uL (4.2-5.4); White Blood Count 10.69 K/uL (4.8-10.8)
[2021-06-27 09:39] LABS: BUN Creatinine Ratio 19.1 (10-20); Calcium 8.4 mg/dl (8.5-10.1); Creatinine Clr Calc Pharmacy 59.5 ml/min; Est GFR (African American) 87.2 ml/min; Est GFR (Non-African American) 75.2 ml/min; Potassium 4.2 mmol/L (3.5-5.1)
[2021-06-27] MEDS: oxyCODONE HCL IR 5 MG TAB (IMMEDIATE RELEASE) PO PRN (12:49)
--- NOTE | 2021-06-27 15:23 | Hospitalist Progress Note ---
Date of Service June 27, 2021 Assessment & Plan (1) Status post total left knee replacement: Plan: Patient is a 71 yr female with H/O HLD, Tachycardia, GERD, venous insufficiency and other medical problems was consulted for postop medical management S/P left total knee arthroplasty Postoperative acute blood loss anemia POD #1 Pain is controlled Continue wound Care on Aspirin BID for DVT Px Hb dropped to 10.3 Continue Incentive Spirometer PT/OT Continue bowel regimen No indication for transfusion currently (2) Tachycardia: Plan: H/O Tachycardia, underwent workup in the past with negative stress test, echo from 2018 with grade 1 diastolic dysfunction, otherwise wnl Continue Metoprolol (3) Hyperlipidemia: Plan: Continue statin (4) Venous insufficiency: Plan: H/o vein ablation in 2019 at [facility] (5) Non-allergic rhinitis: Plan: Continue Flonase, Atrovent, Azelastine (6) GERD (gastroesophageal reflux disease): Plan: Continue Pepcid Disposition: As per primary service Thank you for this consultation. We will follow the patient with you during their hospital stay. You can reach a [facility] the [facility]05 via [place] Text role. Admission and Anticipated Discharge Date Admission Date: June 26, 2021 Subjective Patient is seen and examined at bedside States having pain at surgical site 4/10 Had bowel movement Denies chest pain, dyspnea, dizziness, nausea, abdominal pain Offers no other complaints Review of Systems Review of Systems: All systems reviewed & are unremarkable except as noted in Subjective Physical Exam Physical Exam: Physical Exam: Vitals signs as noted above General Appearance:Moderately built and nourished, no apparent distress Head: normocephalic, Atraumatic Eyes: normal inspection, EOMI Neck: supple, Trachea midline Respiratory/Chest: Normal breath sounds, CTA, No accessory muscle use Cardiovascular: S1, S2, + murmur Abdomen/GI:Soft, Non tender, Bowel sounds present Extremities/Musculoskeletal:normal inspection, Left knee surgical site in dressing,+ wound VAC Neurologic/Psych:AAOX3, grossly no focal neurological deficits Skin: normal color, warm Results & Data Results & Data ([facility]) Vital Signs (Past 12 Hours) Vital Signs Temp Pulse Resp BP Pulse Ox 06/27/21 07:20 36.8 C 60 16 107/70 99 Laboratory Results Short CBC 06/27/21 Range/Units 09:00 WBC 10.69 (4.8-10.8) K/uL Hgb 10.3 L (12.0-16.0) g/dL Hct 31.8 L (37-47) % Plt Count 209 (130-400) K/uL BMP 06/27/21 09:00 Sodium 142 Potassium 4.2 Chloride 111 H Carbon Dioxide 27 BUN 15 Creatinine 0.80 Glucose 119 H Calcium 8.4 L
[2021-06-27] MEDS: FAMOTIDINE 20 MG TAB PO SCH (17:28)
[2021-06-27] MEDS: AZELASTINE NAE SCH (19:56)
[2021-06-27] MEDS: METOPROLOL SUCC 25MG EXT REL TAB PO SCH (19:59)
[2021-06-27] MEDS: SENNA 8.6 MG TAB PO SCH (20:00)
[2021-06-28] MEDS: oxyCODONE HCL IR 5 MG TAB (IMMEDIATE RELEASE) PO PRN (01:10)
[2021-06-28] MEDS: ACETAMINOPHEN 500 MG TAB PO SCH (05:15)
[2021-06-28 06:36] LABS: Hematocrit (blood only) 30.4 % (37-47); Hemoglobin 9.8 g/dL (12.0-16.0); Mean Corpuscular Hemoglobin 30.4 pg (25-34); Mean Corpuscular Hgb Conc 32.2 g/dL (32-36); Mean Corpuscular Volume 94.4 fL (80-100); Mean Platelet Volume 11.9 fL (7.4-10.4); Platelet Count 195 K/uL (130-400); RDW Coefficient of Variation 14.6 % (11.5-14.5); RDW Standard Deviation 50.2 fL (36.4-46.3); Red Blood Count 3.22 M/uL (4.2-5.4); White Blood Count 8.46 K/uL (4.8-10.8)
[2021-06-28 06:59] LABS: BUN Creatinine Ratio 24.7 (10-20); Calcium 8.1 mg/dl (8.5-10.1); Creatinine Clr Calc Pharmacy 64.3 ml/min; Est GFR (African American) 95.8 ml/min; Est GFR (Non-African American) 82.7 ml/min; Potassium 4.1 mmol/L (3.5-5.1)
--- NOTE | 2021-06-28 07:28 | Orthopedic Progress Note ---
Date of Service June 28, 2021 Assessment & Plan (1) Status post total left knee replacement: Plan: POD#2 Left TKA -PT/OT -Pain management as written -AM labs-pending -DVT prophylaxis-SCDs, TEDs, ASA 81mg BID -D/C planning-home with OPPT. Plan for discharge to home today. Admission and Anticipated Discharge Date Admission Date: June 26, 2021 Subjective Postop day 2 Patient sitting up in bed awake and alert. No complaints this morning. Pain is controlled. She states that her drain was pulled this morning and dressing was changed. He states that her foot drop is continuing to improve. No other complaints. She is looking forward to go home today. Physical Exam Physical Exam: Giovanni wound VAC is intact and functioning. Minimal swelling around the knee. Calves are soft and nontender. She still has some mild weakness with her left foot dorsiflexion but has full range of motion actively. Results & Data ([facility]) Vital Signs (Past 12 Hours) Vital Signs Temp Pulse Resp BP Pulse Ox 06/27/21 21:52 36.4 C L 61 16 119/75 98
[2021-06-28] MEDS: AZELASTINE NAE SCH (08:28)
[2021-06-28] MEDS: ASPIRIN 81 MG ECTAB PO SCH (08:29)
[2021-06-28] MEDS: FLUTICASONE PROPIONATE NA SPR 16 GM BTL SCH (08:29)
[2021-06-28] MEDS: DOCUSATE SODIUM 100 MG CAP PO SCH (08:30)
[2021-06-28] MEDS: CeleBREX 200 MG CAP PO SCH (08:30)
[2021-06-28] MEDS: CHOLECALCIFEROL 400 UNITS 10 MCG TAB PO SCH (08:31)
[2021-06-28] MEDS: CALCIUM POLYCARBOPHIL 625MG TAB PO SCH (08:31)
[2021-06-28] MEDS: ROSUVASTATIN CALCIUM 5 MG TAB PO SCH (08:31)
[2021-06-28] MEDS: ADVANCED PROBIOTIC 1250 MG CAPSULE PO SCH (08:33)
[2021-06-28] MEDS: MULTIVITAMIN TAB PO SCH (08:34)
--- NOTE | 2021-06-28 11:58 | Hospitalist Progress Note ---
Date of Service June 28, 2021 Assessment & Plan (1) Status post total left knee replacement: Plan: Patient is a 71 yr female with H/O HLD, Tachycardia, GERD, venous insufficiency and other medical problems was consulted for postop medical management S/P left total knee arthroplasty Postoperative acute blood loss anemia POD #2 Pain is controlled Continue wound Care on Aspirin BID for DVT Px Hb 12.3>10.3>9.8 Continue Incentive Spirometer Continue bowel regimen No indication for transfusion currently Continue PT/OT (2) Tachycardia: Plan: H/O Tachycardia, underwent workup in the past with negative stress test, echo from 2018 with grade 1 diastolic dysfunction, otherwise wnl Continue Metoprolol (3) Hyperlipidemia: Plan: Continue statin (4) Venous insufficiency: Plan: H/o vein ablation in 2019 at [facility] (5) Non-allergic rhinitis: Plan: Continue Flonase, Atrovent, Azelastine (6) GERD (gastroesophageal reflux disease): Plan: Continue Pepcid Disposition: As per primary service Thank you for this consultation. We will follow the patient with you during their hospital stay. You can reach a member of the [facility] Hospitalist Team 10/05 via [employer] Text role. Admission and Anticipated Discharge Date Admission Date: June 26, 2021 Subjective Patient is seen and examined at bedside Doing well today Leg pain is controlled No new complaints Denies chest pain, dyspnea, dizziness, nausea, abdominal pain Review of Systems Review of Systems: All systems reviewed & are unremarkable except as noted in Subjective Physical Exam Physical Exam: Physical Exam: Vitals signs as noted above General Appearance:Moderately built and nourished, no apparent distress Head: normocephalic, Atraumatic Eyes: normal inspection, EOMI Neck: supple, Trachea midline Respiratory/Chest: Normal breath sounds, CTA, No accessory muscle use Cardiovascular: S1, S2, + murmur Abdomen/GI:Soft, Non tender, Bowel sounds present Extremities/Musculoskeletal:normal inspection, Left knee surgical site in dressing Neurologic/Psych:AAOX3, grossly no focal neurological deficits Skin: normal color, warm Results & Data Results & Data ([facility]) Vital Signs (Past 12 Hours) Vital Signs Temp Pulse Resp BP Pulse Ox 06/28/21 08:13 36.8 C 66 14 118/56 L 94 Laboratory Results Short CBC 06/28/21 Range/Units 05:31 WBC 8.46 (4.8-10.8) K/uL Hgb 9.8 L (12.0-16.0) g/dL Hct 30.4 L (37-47) % Plt Count 195 (130-400) K/uL [facility] 06/28/21 05:31 Sodium 142 Potassium 4.1 Chloride 109 H Carbon Dioxide 29 BUN 18 Creatinine 0.74 Glucose 86 Calcium 8.1 L
--- NOTE | 2021-06-30 16:20 | Discharge Summary ---
Date of Service June 30, 2021 Admission HPI Per Admitting Provider 71 year old female with PMHx significant for high cholesterol, GERD, tachycardia, and venous insufficiency presents with longstanding left knee pain. Pain interfering with her daily and leisure activities. She has failed conservative measures including cortison and ARANDA injections, NSAIDs, therapy. She would like to proceed with surgical intervention. Patient denies headaches, sweats, fevers, chills, double vision, blurred vision, cough, sore throat, dysphagia, chest pain, sob, wheezing, n/v/d/c, numbness, tingling, fatigue, urinary symptoms, mood disorders. ROS positive for left knee pain and stiffness. Admission Exam Per Admitting Provider Constitutional: well developed and well nourished; no acute distress Eyes: PERRL, conjunctivae normal, anicteric sclerae ENMT: external ear and nose normal, oropharynx normal Neck: trachea midline, no thyromegaly Respiratory: normal respiratory effort, lungs clear to auscultation Cardiovascular: RRR, no murmur, no edema Musculoskeletal: Left knee: Valgus alignment. Moderate crepitation. Mild effusion. Tenderness lateral joint line. Positive Tea's. Stable to valgus and varus stress. Skin: no rashes, warm and dry Neurologic: patellar DTR's 2+ bilat, sensation intact Psychiatric: A+Ox3, euthymic affect Principal Diagnosis Left knee osteoarthritis Discharge Exam Constitutional well developed and well nourished; no acute distress Eyes PERRL, conjunctivae normal, anicteric sclerae ENMT external ear and nose normal, oropharynx normal Neck trachea midline, no thyromegaly Respiratory normal respiratory effort, lungs clear to auscultation Cardiovascular RRR, no murmur, no edema Skin no rashes, warm and dry Neurologic patellar DTR's 2+ bilat, sensation intact Psychiatric A+Ox3, euthymic affect Discharge Data Allergies Allergy/AdvReac Type Severity Reaction Status Date / Time Sulfa (Sulfonamide AdvReac Intermediate RASH Unverified 06/26/21 05:39 Antibiotics) keflin Allergy Intermediate rash (IV Uncoded 06/26/21 05:39 drug) Consultations 06/20/21 17:16 Consult Hospitalist Routine Procedures Performed Operation Date: 06/26/21 07:00 Actual Procedures p Left Total Knee Arthroplasty(Left) - Pedro Cui MD Ordered Studies 06/26/21 05:00 US - OR guided needle placemen Routine Hospital Course (1) Status post total left knee replacement: Patient presented for same day admission following left total knee arthroplasty on 06/26/21. She tolerated procedure well. Patient did have drop foot post operatively which had essentially resolved by POD#2. Post-operatively, her activity was progressed and well tolerated. They participated in PT with ambulation distance of 150 feet. ROM of operative knee reached 85 degrees. Labs remained stable- lowest hemoglobin recorded: 9.8. Dr. Abelino Alvarado of medical service was consulted for medical management during admission. Pain controlled on oral medications. Please refer to daily progress notes and PT notes for complete details. After exam on 06/28/21, patient was felt to be stable for discharge home with outpatient PT. Patient will f/u in the office in about 2 weeks for further evaluation including x-rays and incision check, sooner if having any issues or concerns. POD#2 Left TKA -PT/OT -Pain management as written -AM labs-pending -DVT prophylaxis-SCDs, TEDs, ASA 81mg BID -D/C planning-home with OPPT. Plan for discharge to home today. Total Time Total Time Spent Total Time Spent (In Minutes): 20 Discharge Plan Discharge Items Patient Disposition: Home - Self-Care Reason For Visit: Unilateral Primary Osteoarthritis, Left Knee Discharge Diagnosis: Left knee osteoarthritis Activity: Per Instructions section Non-emergency contact: Surgeon Call non-emergency contact if: you have any medication questions, your pain is not controlled, your pain is worsening, your pain is concerning for you, you have a fever, your temperature is above 101, your wound has increased redness and your wound has increased drainage Follow-up/Referrals: Pacheco Nguyen MD [Primary Care Provider] - Diet: Regular Addtl Attending Provider Instructions: ACTIVITY RECOMMENDATIONS: SELF CARE INSTRUCTIONS AFTER TOTAL KNEE REPLACEMENT A. You may need to continue a physical therapy program after discharge from the hospital. There are several options available to you. Your doctor will assist you in selecting the best one for you. 1. An out-patient facility 2 to 3 times a week for therapy or home therapy. 2. Continue working on all exercises taught to you in the hospital. Your goals should be to increase bending of your knee to 90 degrees and beyond and to fully straighten your knee. B. You may progress at your own pace from walking with a walker or crutches to a cane; then to no assistive devices. C. Make walking a part of your daily routine. Be up as much as comfortable with rest periods throughout the day. Rest with leg elevation is very important. Use the ice wrap frequently for the first 3-4 weeks. D. There are no restrictions on activities. You may ride in a car, shop, participate in applications trainer and all social activities. E. Wear the long elastic stockings (LIDIA hose) 20 hours a day for 2 weeks after surgery. They can be removed several times a day for laundering and for a bath. F. You may shower, no tub baths until cleared by your doctor. SPECIAL CARE INSTRUCTIONS: VERY IMPORTANT TO READ AND REVIEW A. There are a few signs you need to watch for after you are home. Call [facility] if you notice any of the followin. Increased severe knee pain. Some pain is expected especially when you exercise. 2. Increased swelling in your leg or knee; pain or swelling of the calf muscle in either lower leg. 3. Any fluid drainage from the incision. 4. Shortness of breath or chest pain. B. Please call [facility] at if you have any concerns or questions about your operation or recovery. The doctor or his nurse will return your call promptly. C. You must take antibiotics before dental work, bladder, bowel or other surgery. Your doctor will provide you with a permanent care to carry describing this precaution. IMPORTANT: * REMEMBER TO TAKE ASPIRIN, 81 MG, TWICE DAILY FOR 4 WEEKS UNLESS OTHERWISE DIRECTED. THIS IS YOUR BLOOD THINNER. * HIGH RISK PATIENTS MAY BE PRESCRIBED A STRONGER BLOOD THINNER. THIS WILL BE PROVIDED AT DISCHARGE. * CALL IF INCREASED PAIN, REDNESS, DRAINAGE OR FEVER GREATER THAT 101. * WEAR LIDIA HOSE 20 HOURS PER DAY FOR 2 WEEKS. This is a large suction dressing covering your incision. This will help pull any excess drainage from the wound and allow your incision to heal properly. You may shower with this if you can keep the unit outside of the shower. If any bleeding or leakage is noted please call your doctor's office. This will remain on your incision for 7 days and then should be removed. This can be done yourself or by the home nursing staff if applicable. The entire unit is disposable once removed. Once removed, keep incision clean and dry. If redness or drainage is noted, please call your surgeon. IF INCISION IS LEAKING THROUGH DRESSING, CALL THE OFFICE . FOLLOW UP VISIT: If appointment is not already scheduled: Please call [facility] to make a follow-up appointment for 2 weeks after your surgery at . Stand-Alone Forms: My [facility] [employer], Smoking Cessation Medications and DC Order Prescriptions: New acetaminophen [Tylenol Extra Strength] 500 mg Tablet 1,000 mg PO Q8 Qty: 60 RF: 0 aspirin 81 mg Tablet,Delayed Release (Dr/Ec) 81 mg PO BID Qty: 60 RF: 0 celecoxib [Celebrex] 200 mg Capsule 200 mg PO BID Qty: 60 RF: 0 oxycodone 5 mg Tablet 5 - 10 mg PO .Q4h-6h MDD 6 PRN (Reason: pain) Qty: 30 RF: 0 Continued lysine 500 mg Capsule 500 mg PO QAM RF: 0 valacyclovir [Valtrex] 1 gram Tablet 1,000 mg PO BID PRN (Reason: Cold Sores) RF: 0 famotidine 20 mg Tablet 20 mg PO QPM RF: 0 Premarin 0.625 mg/gram Cream 0.625 mg VAGINAL WK RF: 0 Citrucel 500 mg Tablet 500 mg PO QAM RF: 0 metoprolol succinate [Toprol XL] 25 mg Tablet Extended Release 24 Hr 12.5 mg PO QPM RF: 0 fluticasone propionate 50 mcg/actuation [place],Suspension 1 spray INTRANASAL BID RF: 0 cholecalciferol (vitamin D3) [Vitamin D3] 10 mcg (400 unit) Tablet 10 mcg PO QAM RF: 0 ipratropium bromide 21 mcg (0.03 %) [place],Non-Aerosol 2 spray INTRANASAL BID PRN (Reason: sinus congestion) RF: 0 rosuvastatin [Crestor] 5 mg Tablet 5 mg PO QAM RF: 0 azelastine 205.5 mcg (0.15 %) [place],Non-Aerosol 1 spray INTRANASAL BID PRN (Reason: sinus congestion) RF: 0 Probiotic 100 billion cell Capsule 1 cap PO QAM RF: 0 Discontinued diclofenac sodium [Voltaren] 1 % Gel 2 g TOPICAL QID PRN (Reason: Pain) RF: 0 Discharge Orders: Discharge Order (Routine); Ordered 06/28/21 Ordered By: Omer Simon/Other Patient Handouts: DVT Post Op Prevention, Managing Post-Op Pain at Home ... Admission Data Admit Date/Time: 06/26/21 09:44 Attending Provider: Pedro Cui Admit Provider: Pedro Cui Primary Care Provider: Pacheco Nguyen Other Providers: Abelino Alvarado Other Interventions: Discharge Summary Assessment (RN) Last Done: 06/28/21 08:39
== END 2021-06-28 12:12 | disposition home or self-care (01) ==
LOC: ASU 05:14 → 3E 05:14